=== PATIENT | male | born 1955 | race Caucasian/White ===

== ENCOUNTER 2022-12-25 05:32 | Emergency (ER) | payer MEDICARE, OTHER, SELFPAY ==
[2022-12-25 05:33] VITALS: BP 164/96; PULSE 98; RESP 18; TEMP 36.9; O2SAT 99
[2022-12-25 05:34] VITALS: BP 164/96; PULSE 101; RESP 18; TEMP 36.9; O2SAT 99; BMI 26.1
--- NOTE | 2022-12-25 06:02 | EDS_ITS ---
HPI History of Present Illness Chief Complaint: Ear Problem Informant: patient and spouse/S.O. Narrative Narrative: Patient is a 67-year-old male with past medical history of hypertension and IBS. He states he also has seasonal allergies. He reports that over the past 3 to 4 days he has had increased nasal congestion and sinus pressure and noticed some popping of his right ear. He states that has improved over the last day but he has noticed increased pain and difficulty hearing out of the left ear. He states that he woke this morning with increased pain and could not fall back asleep and with concern for infection presents for evaluation. [facility] Medical History (Updated 12/27/22 @ 00:[address] Sandor Pritchard, DO) Acid reflux High cholesterol History of IBS HTN (hypertension) Seasonal allergies Home Medications amoxicillin 875 mg-potassium clavulanate 125 mg tablet 1 tab PO BID 10 days #20 tabs 12/25/22 [Rx Last Taken Unknown] hydrocodone-acetaminophen 5-325mg 5mg-325mg 1 tab PO Q6H PRN PRN Pain 3 days #12 TABLETS 12/25/22 [Rx Last Taken Unknown] prednisone 20 mg tablet 40 mg PO DAILY 5 days #10 tabs 12/25/22 [Rx Last Taken Unknown] Surgical History (Updated 12/25/22 @ 05:40 by Erum Fay) H/O knee surgery H/O shoulder surgery Social History Smoking Status: Never smoker ROS ROS ED Constitutional Constitutional ED: Denies chills or fever(s) ENT ENT ED: Reports ear pain, rhinorrhea and sore throat Cardiovascular Cardiovascular: Denies chest pain Respiratory/Chest Respiratory/Chest: Denies cough or dyspnea Gastrointestinal Gastrointestinal: Denies abdominal pain, diarrhea, nausea or vomiting Genitourinary Genitourinary ED: Denies dysuria Musculoskeletal Musculoskeletal: Denies myalgias or neck pain Integumentary Denies rash Neurologic Neurologic: Reports headache(s) Hematologic/Lymphatic Hematologic/Lymphatic: Denies easy bleeding or easy bruising EXAM Physical Exam Const Vital Signs: 12/25/22 05:34 12/25/22 05:33 Temperature 98.4 F 98.4 F Temperature Source Oral Oral Pulse Rate 101 H 98 Respiratory Rate 18 18 Blood Pressure 164/96 H 164/96 H Blood Pressure Mean 118 118 Pulse Ox 99 99 Oxygen Delivery Method Room Air Room Air Positive well nourished and well developed General Appearance ED: well developed HEENT Reports moist mucous membranes HEENT Narrative: Nasal mucosa is hyperemic and boggy and posterior pharynx displays cobblestoning consistent with sinus drainage without secondary changes to suggest infection. Right canal is normal and right TM is slightly retracted but shows no secondary changes to suggest infection. Left canal is normal with TM is erythematous and bulging consistent with acute otitis media. No active discharge or drainage or foreign body noted. No pain with external manipulation of either ear and no pain on palpation over top the bilateral mastoid. No secondary changes to suggest malignant otitis externa. Eyes PERRL and EOMs intact bilaterally Neck supple Neck Narrative: Positive left anterior cervical lymphadenopathy noted Resp normal respiratory effort and clear to auscultation bilaterally Cardio regular rate and regular rhythm Extremity normal to inspection Neuro oriented x3 and CN's II-XII intact bilaterally Sensorium / Orientation: alert Psych mental status grossly normal Skin no rashes or lesions noted MDM MDM MDM Narrative Medical decision making narrative: Patient presented to the ER hypertensive but has a past medical history of this and is in pain which is to be expected and otherwise stable vitals. Exam shows changes consistent with acute otitis media. Differential diagnosis is otitis media versus otitis externa versus malignant otitis externa versus mastoiditis versus sinus headache and viral URI. At this time as the patient does not have mastoid pain or overlying soft tissue changes there is little concern for mastoiditis or malignant otitis externa. As patient is afebrile with normal neurologic exam concern for systemic infection is low as well and therefore do not feel there is need for imaging or laboratory studies. Patient replaced on antibiotics secondary to the acute otitis media but is otherwise safe for discharge History & Record Review Discussion w/independent historian: Patient and Significant other Discharge Plan Triage Chief Complaint: Ear Problem ED Provider: Sandor Pritchard Dx/Rx/DC Orders Clinical Impression: Acute left otitis media, Hypertension Instructions: ED Otitis Media Antibiotic ... Prescriptions: New amoxicillin-pot clavulanate 875-125 mg tablet 1 tab PO BID 10 Days Qty: 20 0RF prednisone 20 mg tablet 40 mg PO DAILY 5 Days Qty: 10 0RF hydrocodone-acetaminophen 5-325 mg tablet 1 tab PO Q6H PRN PRN (Reason: Pain) 3 Days Qty: 12 0RF Primary Care Provider: Doe Escamilla Referrals: Doe Escamilla MD [Primary Care Provider] - Disposition Disposition: Home, Self Care Discharge Date/Time: 12/25/22 06:18
[2022-12-25] MEDS: dexAMETHasone 10 MG/ML Vial PO.IVFORM (06:08)
[2022-12-25] MEDS: Amox/Clavulanate 875 MG Tablet PO (06:09)
[2022-12-25] MEDS: HYDROcodone Bitartrate/Apap 5/325 Tablet PO (06:10)
== END 2022-12-25 06:18 | disposition home or self-care (01) ==
PROVIDERS: Emergency Provider Emergency Medicine; PCP Family Medicine; Visit Provider Emergency Medicine
DX: H66.92 Otitis media, unspecified, left ear (principal); I10 Essential (primary) hypertension
CPT/HCPCS: 99283

== ENCOUNTER 2025-05-20 18:31 | Emergency (ER) | payer MEDICARE, OTHER, SELFPAY ==
[2025-05-20 18:34] VITALS: BP 136/100; PULSE 95; RESP 18; TEMP 37.1; O2SAT 95; BMI 24.9
[2025-05-20 18:38] VITALS: BP 136/100; PULSE 95; RESP 18; TEMP 37.1; O2SAT 95
[2025-05-20 19:36] LABS: Hematocrit 45.1 % (40-54); Hemoglobin 15.5 g/dL (13.0-16.5); Immature Granulocytes Count 0.060 X10^3/uL (0.0-0.0); Mean Corp Hgb Conc 34.4 g/dL (32-36); Mean Corpuscular Volume 95.1 fL (80-94); Mean Platelet Vol. 11.0 fl (6.2-12.0); NRBC Flagged by Analyzer 0 % (0-5); POSITIVE DIFFERENTIAL YES; Platelet Count 286 K/mm3 (150-450); RBC Distribution Width CV 12.4 % (11.6-14.6); RBC Distribution Width SD 43.3 fl (35.1-43.9); Red Blood Count 4.74 M/mm3 (4.6-6.2); White Blood Count 11.7 K/mm3 (4.4-11.0)
[2025-05-20 19:44] LABS: Differential Indicated SCAN CRITERIA MET
[2025-05-20 19:49] VITALS: BP 153/96; PULSE 90; RESP 18; TEMP 37.1; O2SAT 97
[2025-05-20 19:54] LABS: Anion Gap 13 (5-15); BUN 15 mg/dL (4-19); BUN/Creat Ratio 14.2 RATIO (10-20); Calcium,Total 9.2 mg/dL (7.6-11.0); Carbon Dioxide 22.0 mmol/L (21.0-32.0); Chloride 100 mmol/L (98-108); Estimated Creatinine Clearance 75.05 ml/min (50-250); Glucose 182 mg/dL (70-99); Potassium 3.7 mmol/L (3.3-5.1)
[2025-05-20 21:00] VITALS: BP 147/84; PULSE 87; RESP 16; TEMP 37.3; O2SAT 98
[2025-05-20 21:05] LABS: Mucous, Urine 0 SEEN /hpf (<or=2+)
[2025-05-20 21:16] LABS: Color, Urine Yellow (Yellow); Glucose, Dipstick Normal (Normal); Ketone-Dipstick Negative (Negative); Leukocyte Esterase-Dipstick Negative /ul (Negative); Nitrite-Dipstick Negative (Negative); Occult Blood-Urine Negative /ul (Negative); Protein-Dipstick 15 mg/dl (Negative); Specific Gravity, Urine 1.010 (1.002-1.030); Urine Bilirubin Dipstick Negative (Negative)
[2025-05-20 21:17] LABS: Differential Comment SCANNED
[2025-05-20 21:53] LABS: Red Blood Cells-Urine 0-5 SEEN /hpf (0-5); Squamous Epithelial Cells - UA 0-5 SEEN /hpf (0-5)
[2025-05-20 22:00] VITALS: BP 157/94; PULSE 86; RESP 16; RESP 18; TEMP 37.2; O2SAT 97
== END 2025-05-20 22:18 | disposition home or self-care (01) ==
PROVIDERS: Emergency Provider Emergency Medicine; PCP Family Medicine; Visit Provider Emergency Medicine
DX: Z04.89 Encounter for examination and observation for other specified reasons (principal); E78.00 Pure hypercholesterolemia, unspecified; I10 Essential (primary) hypertension; R50.9 Fever, unspecified; K21.9 Gastro-esophageal reflux disease without esophagitis; Z79.899 Other long term (current) drug therapy; Z90.49 Acquired absence of other specified parts of digestive tract
CPT/HCPCS: 71046; 80048; 81001; 85025; 87631; 99282; A4216